=== PATIENT | male | born 1975 | race Two or more races ===

== ENCOUNTER 2023-10-30 06:59 | Outpatient (RCR) | payer OTHER, SELFPAY | END 2023-10-30 23:59 | disposition home or self-care (01) | LOC: RPT 06:59 | PROVIDERS: ATTENDING PHYSICIAN Student in an Organized Health Care Education/Training Program | DX: M54.51 Vertebrogenic low back pain (principal); Z73.6 Limitation of activities due to disability | CPT/HCPCS: 97110; 97162; 97530 ==

== ENCOUNTER → 2024-06-06 10:32 | Outpatient (REF) | payer OTHER, SELFPAY ==
[2024-06-06 13:21] LABS: ALT (SGPT) 36 U/L (0-50); AST (SGOT) 28 U/L (17-59); Albumin 4.3 g/dl (3.5-5.0); Alkaline Phosphatase 84 U/L (38-126); Blood Urea Nitrogen 13 mg/dl (9-20); Calcium 9.5 mg/dl (8.4-10.2); Carbon Dioxide 29 mmol/L (22-30); Chloride 106 mmol/L (98-107); Glucose 99 mg/dl (70-99); HDL Cholesterol 41 mg/dl; LDL Cholesterol, Calculated 143 mg/dl; Potassium 4.9 mmol/L (3.5-5.1); Sodium 140 mmol/L (135-145); Total Bilirubin 0.6 mg/dl (0.2-1.3); Total Cholesterol 204 mg/dl (50-199); Triglyceride 101 mg/dl (10-149); Very Low Density Lipoprotein 20 mg/dl (0-30); eGFR > 60.00
[2024-06-06 13:45] LABS: PSA, Total - Screen 0.78 ng/ml (0.0-4.0)
== END ==
LOC: REG 10:32
PROVIDERS: ATTENDING PHYSICIAN Family Medicine
DX: Z00.00 Encounter for general adult medical examination without abnormal findings (principal)
CPT/HCPCS: 36415; 80053; 80061; G0103

== ENCOUNTER → 2024-09-01 07:37 | Outpatient (REF) | payer OTHER, SELFPAY | LOC: EMG 07:37 | PROVIDERS: ATTENDING PHYSICIAN Orthopaedic Surgery; FAMILY PHYSICIAN Nurse Practitioner Adult Health | DX: R20.0 Anesthesia of skin (principal) | CPT/HCPCS: 95886; 95911 ==